=== PATIENT | male | born 2000 | race Caucasian/White ===

== ENCOUNTER → 2020-08-25 17:57 | Outpatient (CLI) | payer OTHER, MEDICAID, SELFPAY ==
--- NOTE | 2020-08-25 18:00 | DI.MRI.S_ITS ---
PROCEDURE: MR KNEE LT WO CON INDICATIONS: PAIN IN LEFT KNEE TECHNIQUE: Noncontrast sagittal PD fast spin echo and T2 fast spin echo with fat saturation, sagittal 3-D FLASH with fat saturation; coronal T1 spin echo and PD fast spin echo with fat saturation, and axial PD fast spin echo with fat saturation through the knee. COMPARISON: None. FINDINGS: Image quality: Excellent. Menisci: There is a horizontal oblique tear in the body and posterior horn of the medial meniscus extending to the middle to outer third of the femoral articular surface. A tiny 3 mm parameniscal cyst is seen along the nonarticular margin at the posterior body. The lateral meniscus is intact. Cruciate ligaments: The anterior and posterior cruciate ligaments appear intact. Medial structures: The medial collateral ligament appears intact. The semimembranosus tendon insertions and meniscocapsular junction appear intact. Visualized portions of the pes anserinus tendons appear normal. No abnormal bursal fluid. Lateral structures: The lateral collateral ligament, long and short heads of the biceps femoris tendon appear intact. The popliteus tendon appears intact. No signs of posterolateral corner injury. Iliotibial band appears normal. Anterior structures: The quadriceps and patellar tendons appear intact. Patellar alignment is normal. 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 The tibial tubercle-trochlear groove distance is within normal limits. No edema in the infrapatellar fat pad. Bones and cartilage: No bone marrow contusions or fractures. The cartilage of the medial and lateral femorotibial compartments, as well as the patellofemoral compartment, appears normal in thickness. Joint space: There is physiologic knee joint fluid. Trace medial popliteal cyst. IMPRESSION: 1. Horizontal oblique tearing of the posterior horn and body of the medial meniscus extending to the mid mid to outer third of the femoral articular surface. A 3 mm parameniscal cyst is noted. 2. No acute trabecular bone injury. The cruciate and collateral ligaments are intact. The lateral meniscus is intact. Dictated by: John Dozier M.D. on 08/26/2020 at 8:48 Approved by: John Dozier M.D. on 08/26/2020 at 8:54
== END ==
PROVIDERS: Referring Provider Orthopaedic Surgery; Visit Provider Orthopaedic Surgery
DX: M25.562 Pain in left knee (principal); S83.242A Other tear of medial meniscus, current injury, left knee, initial encounter
CPT/HCPCS: 73721

== ENCOUNTER 2021-05-19 13:02 | Emergency (ER) | payer OTHER, MEDICAID, SELFPAY | END 2021-05-19 13:23 | disposition left against medical advice (07) | PROVIDERS: Emergency Provider Emergency Medicine | DX: Z53.21 Procedure and treatment not carried out due to patient leaving prior to being seen by health care provider (principal) | CPT/HCPCS: 99281 ==

== ENCOUNTER 2022-03-29 16:24 | Emergency (ER) | payer OTHER, MEDICAID, SELFPAY ==
[2022-03-29 16:28] VITALS: BP 121/81; PULSE 84; RESP 20; TEMP 36.7; O2SAT 100; BMI 21.9
--- NOTE | 2022-03-29 17:53 | PC.NURSE ---
Per pt report I was fine all morning and today at 14:30 I was raking and suddenly had a spasm in my neck on the left side and had a hard time breathing, I threw up and my legs were shaky. It was very sudden and came out of no where. I had a head cold last week.
--- NOTE | 2022-03-29 18:25 | ED_ITS ---
HPI - Skin/Abscess/Foreign Bdy General Chief complaint: Skin/Abscess/Foreign Body Stated complaint: SUDDEN LUMP SHOWED UP IN THROAT, DIFFICULTY BREATH Time Seen by Provider: 03/29/22 18:08 Source: patient Mode of arrival: Ambulatory Limitations: no limitations History of Present Illness HPI narrative: 21M nonsmoker without chronic medical history presents with mother and chief complaint of a painful lump on the left side of his neck. He states that it was in his normal state of health and denies any fever chills, trouble breathing, swallowing, cough or other until this afternoon when he felt a sudden onset pain and developed a lump under the left side of his jaw. He states that it made him feel quite anxious and as he could not breathe or swallow briefly and he presents here for evaluation. Other than a head cold last week he has been in his baseline and normal state of health. He is resting comfortably and able to breathe and swallow without difficulty at this time. He denies any recent change in medications or diet. He denies fever, chills, nausea, vomiting. Related Data Previous Rx's Medication Instructions Recorded ketorolac 10 mg tablet 10 mg PO Q6H PRN pain #14 tabs 03/29/22 Allergies Allergy/AdvReac Type Severity Reaction Status Date / Time No Known Drug Allergies Allergy Verified 03/29/22 18:42 Review of Systems Review of Systems Narrative: GENERAL: Denies chills, fatigue, malaise, fever, sweats. HEENT: See HPI RESPIRATORY: See HPI CARDIOVASCULAR: Denies chest pain, palpitations, orthopnea, edema, GASTROINTESTINAL: Denies nausea, vomiting, abdominal pain, diarrhea, constipa tion, melena. : Denies dysuria, frequency, incontinence, hematuria, urinary retention. MUSCULOSKELETAL: denies weakness, joint pain, or bony pain SKIN: Denies rash, skin lesions, or other NEUROLOGIC: Denies weakness, headache, numbness, change in speech, confusion, seizures, incoordination. PSYCHIATRIC: No concerning psychosocial issues. 12 point review of systems is negative except for those stated above Exam Narrative Exam Narrative: GENERAL: [21] year old patient appears stated age. Well-developed patient, in no obvious distress, resting comfortably HEAD: Atraumatic. Normocephalic. EYES: Pupils equal round and reactive. Extraocular motions intact. No scleral icterus. No injection or drainage. ENT: Moist mucous membranes Nose without bleeding, purulent drainage. Throat without erythema, tonsillar hypertrophy or exudate. Airway patent. NECK: 2cm mobile nontender lump in left submandibular region, without erythema, warmth, fluctuance. Trachea midline. Non tender CARDIOVASCULAR: Regular rate and rhythm without murmurs, gallops, or rubs. RESPIRATORY: Clear to auscultation. Breath sounds equal bilaterally. No wheezes, rales, or rhonchi. GASTROINTESTINAL: Abdomen soft, non-tender, nondistended. EXTREMITIES: No edema or joint tenderness. BACK: Nontender without deformity or crepitance. No flank tenderness. NEURO: AOx3. SKIN: No rash or erythema of visible areas Initial Vital Signs Initial Vital Signs: Vital Signs Temperature 98.1 F 03/29/22 16:28 Pulse Rate 84 03/29/22 16:28 Respiratory Rate 20 03/29/22 16:28 Blood Pressure 121/81 03/29/22 16:28 Pulse Oximetry 100 03/29/22 16:28 Oxygen Delivery Method 03/29/22 16:28 Course Orders Ordered: Discontinued Medications Ketorolac Tromethamine (Ketorolac 30 Mg/Ml Vial) 30 mg IM NOW ONE Stop: 03/29/22 18:37 Last Admin: 03/29/22 18:43 Dose: 30 mg Documented By: ANTONIO Vital Signs Vital signs: Vital Signs - 8 hr 03/29/22 16:28 Temperature 98.1 F Pulse Rate 84 Respiratory Rate 20 Blood Pressure 121/81 Pulse Oximetry 100 Oxygen Delivery Method Room Air MDM - Skin/Abscess/Foreign Bdy MDM Narrative Medical decision making narrative: Multiple etiologies for patient's symptoms considered including: [Infection versus saddle had tinnitus versus reactive lymphadenopathy versus other] Patient's symptoms improved rapidly, without intervention. Airway inability to swallow or completely unaffected. Most likely sialoadenitis given rapid onset, lack of other symptoms. We did discuss a more involved workup including labs and possible imaging but with such a reassuring history and physical exam, very very low suspicion of the likelihood of findings that would change the plan we sure the opinion that there is no indication at this time. 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 Discharge Plan Departure Patient Disposition: Home Clinical Impression: Sialoadenitis Activity Restrictions/Additional Instructions: *You have been diagnosed with [left neck swelling, likely due to blocked salivary gland (sialoadenitis). As we discussed your history and physical exam are very reassuring and this is unlikely to be deep infection or allergic reaction] *What to do: *Please continue to take your regular medications as directed. [ x] New medication prescriptions sent to your pharmacy: [ [facility]] [ ] New medication written as a paper prescription [ ] No new medications given *Please follow up with your primary care provider in 2-3 days, call for an appointment. Let them know you were seen in the Emergency Department and that we ask that you be seen in follow up. We will electronically transmit a record of today's note if your PCP is in our system *If you do not have a primary care provider please contact the [facility] Resource line at [phone]. They will ask some questions about your medical history and help get you set up with a doctor in the community. *Return to Emergency Department if you should have any new, worsening or concerning symptoms, such as [fever greater than 101 F, shaking chills, worsening pain, persistent vomiting or other bothersome symptoms] Prescriptions: New ketorolac 10 mg tablet 10 mg PO Q6H PRN (Reason: pain) Qty: 14 0RF Visit Report Forms: Patient Portal/API
[2022-03-29] MEDS: KETOROLAC 30 MG/ML VIAL IM (18:43)
[2022-03-29 18:50] VITALS: BP 142/94; PULSE 70; RESP 18; O2SAT 99
== END 2022-03-29 18:50 | disposition home or self-care (01) ==
PROVIDERS: Emergency Provider Emergency Medicine
DX: K11.20 Sialoadenitis, unspecified (principal)
CPT/HCPCS: 96372; 99283; J1885

== ENCOUNTER 2022-07-22 17:09 | Emergency (ER) | payer OTHER, MEDICAID, SELFPAY ==
[2022-07-22 17:27] VITALS: BP 130/59; PULSE 94; RESP 14; TEMP 36.8; O2SAT 99; BMI 22.5
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
--- NOTE | 2022-07-22 17:31 | DI.RAD.S_ITS ---
PROCEDURE: XR KNEE LT 3V INDICATIONS: Joint, pain TECHNIQUE: 3 views of the knee were acquired. COMPARISON: None. FINDINGS: Bones: No fractures or dislocations. No suspicious bony lesions. Soft tissues: Large joint effusion. No suspicious soft tissue calcifications. IMPRESSION: Large joint effusion without fracture or foreign body Approved by: Zhou Harding M.D. on 07/22/2022 at 17:09
--- NOTE | 2022-07-22 17:54 | PC.NURSE ---
patient complains of tightness in chest muscle and hurts to breathe on his left ribs area. He complains of left shoulder pain and left knee pain. His knee pain is the worst and he states that he feels a pop sensation intermittently.
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
[2022-07-22] MEDS: IBUPROFEN 400 MG TABLET 800 MG PO (18:51)
== END 2022-07-22 19:33 | disposition home or self-care (01) ==
PROVIDERS: Emergency Provider Physician Assistant
DX: M25.562 Pain in left knee (principal); R07.81 Pleurodynia; M25.512 Pain in left shoulder; X58.XXXA Exposure to other specified factors, initial encounter
CPT/HCPCS: 71101; 73030; 73562; 99283